=== PATIENT | female | born 1950 | race Caucasian/White ===

== ENCOUNTER → 2016-12-03 | Outpatient (CLI) | payer MEDICARE, OTHER ==
--- NOTE | 2016-12-04 09:00 | RSPPFT ---
DATE OF PROCEDURE: 12/13/16 COMMENTS: VOLUMES DYNAMIC: FVC and FEV1 normal. STATIC: FRC moderately reduced; RV and TLC mildly reduced. FLOWS: FEV1% and FEF 25-75 normal. DIFFUSION: Normal. FLOW VOLUME LOOP: Restrictive configuration. IMPRESSION: Mild restrictive ventilatory defect with no significant airways obstruction and no increase in airways resistance. There is also no response to bronchodilator.
== END ==
LOC: PHRSP 08:33
PROVIDERS: ATTEND Internal Medicine
DX: J84.9 Interstitial pulmonary disease, unspecified (principal)
CPT/HCPCS: 94060; 94620; 94726; 94729